=== PATIENT | female | born 1945 | race Caucasian/White ===

== ENCOUNTER 2017-01-23 12:43 | Emergency (ER) | payer MEDICARE, MEDICAID ==
[2017-01-23 13:13] VITALS: RESP 16; O2SAT 100
[2017-01-23 13:57] LABS: RBC URINE 1657 /hpf (0-3); URINE BACTERIA OCC (<OCC); URINE BILIRUBIN NEGATIVE (NEGATIVE); URINE BLOOD 3+ (NEGATIVE); URINE COLOR Yellow (YELLOW); URINE GLUCOSE (UA) NORMAL (Normal); URINE KETONE NEGATIVE (NEGATIVE); URINE LEUKOCYTE ESTERASE 2+ Leu/uL (Negative); URINE PROTEIN 2+ mg/dL (NEGATIVE); URINE UROBILINOGEN NORMAL mg/dL (0.2-1.0); WBC CLUMPS MANY /hpf; WBC URINE 612 /hpf (0-5)
[2017-01-23] MEDS ORDERED: Sodium Chloride 0.9% 1,000 ML IV ONE (14:12)
[2017-01-23] MEDS ORDERED: Sodium Chloride 0.9% 1,000 ML ONE (14:34)
[2017-01-23 14:42] LABS: BASO % 0.4 % (0.0-2.0); EOS # 0.2 K/uL (0.0-0.7); EOS % 2.2 % (0.0-4.0); HEMATOCRIT 28.1 % (34.0-47.0); LYMPH # 1.2 K/uL (1.0-4.3); LYMPH % 11.3 % (20.0-40.0); MEAN CORPUSCULAR HEMOGLOBIN 28.9 pg (27.0-31.0); MEAN CORPUSCULAR HGB CONC 32.8 g/dL (33.0-37.0); MONO # 0.8 K/uL (0.0-0.8); MONO % 7.6 % (0.0-10.0); RED CELL DISTRIBUTION WIDTH 14.2 % (11.5-14.5)
[2017-01-23 14:48] LABS: POTASSIUM 3.8 mmol/L (3.6-5.2)
--- NOTE | 2017-01-23 14:48 | RAD ---
PROCEDURE: Radiographs of the chest and abdomen (obstructive series) HISTORY: abd pain COMPARISON: Chest x-ray performed 01/19/17 FINDINGS: CHEST: Heart size appears within normal limits. Atherosclerotic calcifications of the aortic knob. Chronic appearing fibrotic changes within the right greater than left lung apices. Scattered tiny nodular densities evident. Please note that chest x-ray has limited sensitivity for the detection of pulmonary masses. No significant pleural effusion. No definite pneumothorax. ABDOMEN AND PELVIS: Nonobstructive bowel gas pattern. No definite free air. Moderate constipation. Left ureteral stent. Right stent/nephrostomy catheter. Osseous demineralization. Degenerative changes. IMPRESSION: Chronic appearing fibrotic changes within the right greater than left lung apices. Scattered tiny pulmonary nodular densities evident. Moderate constipation. Left ureteral stent. Right stent/nephrostomy catheter.
[2017-01-23 14:51] LABS: ALB/GLOB RATIO 0.8 (1.0-2.1); BILIRUBIN,TOTAL 0.5 mg/dL (0.2-1.3); CALCIUM 9.8 mg/dl (8.6-10.4); TOTAL PROTEIN 8.3 g/dL (6.3-8.3)
[2017-01-23] MEDS ORDERED: Moxifloxacin IV 400mg/250ml NS 400 MG/250 ML BAG IVPB STA (14:52)
[2017-01-23] MEDS ORDERED: cefTRIAXone IV 1 gm in Dextros 50 ML IV STA (15:17)
--- NOTE | 2017-01-23 15:19 | C.PDOC ---
History Of Present Illness 71 y/o female who presents to the ED complaining of foul smelling urine and cramping abdominal discomfort. 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 Pending exchange of the right jose-ureteral stent for a ureteral stent, and changing of the left stent in [address] Beatrice Mosley. PMD: Tiffanie Barraza Time Seen by Provider: 01/23/17 13:03 Chief Complaint (Nursing): Female Genitourinary History Per: Patient History/Exam Limitations: no limitations Current Symptoms Are (Timing): Still Present Past Medical History Reviewed: Historical Data, Nursing Documentation, Vital Signs Vital Signs: Last Vital Signs Temp 97.4 F L 01/23/17 13:08 Pulse 98 H 01/23/17 13:08 Resp 16 01/23/17 13:08 BP 145/68 01/23/17 13:08 Pulse Ox 100 01/23/17 15:38 - Medical History PMH: Malignancy (gynecological cancer) Surgical History: Endoscopy - [facility] Procedures CYSTOSCOPY NEC (10/04/12) REMOV URETERAL DRAIN (11/07/13) URETERAL CATHETERIZATION (11/07/13) Family History: States: Unknown Family Hx - Social History Hx Tobacco Use: No Hx Alcohol Use: No Hx Substance Use: No - Immunization History Hx Tetanus Toxoid Vaccination: No Hx Influenza Vaccination: Yes Hx Pneumococcal Vaccination: Yes Review Of Systems Except As Marked, All Systems Reviewed And Found Negative. Gastrointestinal: Positive for: Abdominal Pain (cramping) Genitourinary: Positive for: Other (Foul smelling urine) Physical Exam - Physical Exam Appears: No Acute Distress, Other (Thin, elderly) Skin: Normal Color, Warm, Dry Head: Atraumatic, Normacephalic Eye(s): bilateral: Normal Inspection, PERRL, EOMI Oral Mucosa: Moist Neck: Normal Chest: Symmetrical Cardiovascular: Rhythm Regular, No Murmur Respiratory: Normal Breath Sounds, No Accessory Muscle Use Gastrointestinal/Abdominal: Soft, No Tenderness, Other (percutaneous ureteral stents noted) Back: Normal Inspection Extremity: Normal ROM, No Pedal Edema, No Deformity Neurological/Psych: Oriented x3, Normal Speech Gait: Steady ED Course And Treatment - Laboratory Results Result Diagrams: 01/23/17 14:32 01/23/17 14:32 Lab Interpretation: Abnormal (+ mild leukocytosis, baseline anemia, normal renal function, UA 600 WBC's) O2 Sat by Pulse Oximetry: 100 (RA) Pulse Ox Interpretation: Normal - Radiology CXR: Interpreted by Me CXR Interpretation: Yes: No Acute Disease - Other Rad abd x 2 X-Ray: Interpreted by Me (+ R perc renal/ureteral stent in goo place, L ureteral stent good place, +FOS) Progress Note: 14:12. Initial Plan: Ordered blood work, cultures, and X-Ray Abdomen Obstructive Series. Started on fluids, Toradol, and Rocephin. Pending reevaluation and disposition. Reevaluation Time: 15:35 (Patient is medically stable and will be discharged home with Rx for Cephalexin and Colace.) Reassessment Condition: Improved - Physician Consult Information Time Consulting Physician Contacted: 14:50 Physician Contacted: Beatrice Mosley Outcome Of Conversation: Advises starting patient on Avelox IV. Medical Decision Making Medical Decision Making: Time: 14:46 X-Ray Abdomen Obstructive Series: FINDINGS: CHEST: Heart size appears within normal limits. Atherosclerotic calcifications of the aortic knob. Chronic appearing fibrotic changes within the right greater than left lung apices. Scattered tiny nodular densities evident. Please note that chest x-ray has limited sensitivity for the detection of pulmonary masses. No significant pleural effusion. No definite pneumothorax. ABDOMEN AND PELVIS: Nonobstructive bowel gas pattern. No definite free air. Moderate constipation. Left ureteral stent. Right stent/nephrostomy catheter. Osseous demineralization. Degenerative changes. IMPRESSION: Chronic appearing fibrotic changes within the right greater than left lung apices. Scattered tiny pulmonary nodular densities evident. Moderate constipation. Left ureteral stent. Right stent/nephrostomy catheter. --Rocephin in case Avelox not available Disposition Doctor Will See Patient In The: Office Counseled Patient/Family Regarding: Studies Performed, Diagnosis - Disposition Referrals: Beatrice Mosley MD [Staff Provider] - Disposition: HOME/ ROUTINE Disposition Time: 15:36 Condition: GOOD Additional Instructions: UTI: jamel keflex 500 mg (antbiotico) 2 veces al rena por [address] Mosley para hacer los cambios de los tubos utererales. Estrenemiento: jamel un purgante ahora- julia botella de Citrato de Magnesio Sigue Colace 100 mg (esuavesante de los heces) 2 veces al rena para ayudar en prevenir el estrenmeinto Cambios de dieta. Prescriptions: Cephalexin [cephalexin] 500 mg PO BID #12 cap Docusate [Colace] 100 mg PO BID #60 cap Instructions: Constipation (ED), Urinary Tract Infection in Women (ED) Forms: [employer] (Indonesian) Print Language: SINHALA - Clinical Impression Clinical Impression: UTI (urinary tract infection), Constipated - Scribe Statement The provider has reviewed the documentation as recorded by the Scribe Hillary Duenas All medical record entries made by the Scribe were at my direction and personally dictated by me. I have reviewed the chart and agree that the record accurately reflects my personal performance of the history, physical exam, medical decision making, and the department course for this patient. I have also personally directed, reviewed, and agree with the discharge instructions and disposition.
[2017-01-23] MEDS ORDERED: cefTRIAXone IV 1 gm in Dextros 50 ML IVPB ONE (15:52)
[2017-01-23 16:23] VITALS: BP 119/64; PULSE 90; TEMP 98
== END 2017-01-23 16:35 | disposition home or self-care (01) ==
LOC: C.ER 12:43
DX: N39.0 Urinary tract infection, site not specified (principal); K59.00 Constipation, unspecified
CPT/HCPCS: 74022; 80053; 81001; 83690; 85025; 87040; 87086; 96361; 96365; 96375; 99285; J0696; J1885; J7040

== ENCOUNTER 2017-01-27 05:48 | Day surgery (SDC) | payer MEDICARE, MEDICAID ==
[2017-01-27] MEDS ORDERED: Lidocaine 2% Jelly (Uro-Jet) ONE (07:35)
[2017-01-27] MEDS ORDERED: Iohexol 240 (50 ml) ONE (07:35)
[2017-01-27] MEDS ORDERED: cefTRIAXone IV 1 gm in Dextros 50 ML IVPB ONE (07:35)
[2017-01-27] MEDS ORDERED: Lactated Ringer's 1,000 ML IV ONE ×2 (08:05→09:10)
[2017-01-27] MEDS ORDERED: Midazolam 2 MG/2 ML VIAL ONE (08:10)
[2017-01-27] MEDS ORDERED: Gentamicin 80 mg in 0.9% NS 80 MG/100 ML BAG IVPB ONE (08:17)
[2017-01-27] MEDS ORDERED: Propofol 10 mg/ml Inj (20 ML) ONE ×2 (08:19→08:56)
[2017-01-27] MEDS ORDERED: HYDROmorphone 0.5 mg/0.5 ml ISec IVP PRN (08:47)
--- NOTE | 2017-01-27 09:41 | PCM.SURG1 ---
Surgeon's Initial Post Op Note - Surgeon's Notes Surgeon: Justin ESCOBAR Ultrasound Tester: NONE Type of Anesthesia: IV Sedation Pre-Operative Diagnosis: BILAT HYDRONEPHROSIS Operative Findings: SAME, CYSTITIS. PSSIBLE PELVIC INDURATION/MASS Post-Operative Diagnosis: SAME Operation Performed: CYSTO, BILAT RTG PYELOGRAM. BILAT STENT INSERTION. EUA Specimen/Specimens Removed: URINE. BLADDER DEBRIS Estimated Blood Loss: EBL {In ML}: 0 Blood Products Given: N/A Post-Op Condition: Good Date of Surgery/Procedure: 01/27/17 Time of Surgery/Procedure: 09:15
[2017-01-27 11:32] VITALS: BP 124/51; PULSE 86; RESP 18; TEMP 97.9; O2SAT 99
--- NOTE | 2017-01-27 13:32 | RAD ---
HISTORY: BILAT HYDRONEPHROSIS COMPARISON: 10/04/2012 FINDINGS: There is a stable 4 mm calcification in the right kidney. There is a right nephrostomy with external draining catheter. There is also right-sided ureteral catheter. There is a stable left-sided double-J ureteral catheter. BOWEL: Normal. No obstruction. No free air. BONES: Within normal limits for the patient's age. OTHER FINDINGS: There are multiple scar surgical clips in the abdomen and pelvis. IMPRESSION: 1. 4 mm right renal stone. 2. Right nephrostomy and ureteral stents remain in place. 3. Stable position of left ureteral stent.
--- NOTE | 2017-01-28 09:26 | RAD ---
INTRAOPERATIVE FLUOROSCOPY: Intraoperative fluoroscopy was provided to the referring physician to assist in bilateral double-J ureteral stent placement for bilateral hydronephrosis apparently. Spot fluoroscopic images demonstrate cystogram follow-up by bilateral ureteronephrograms with stepwise placement of bilateral double-J ureteral stents identified. 92.9 seconds of fluoroscopy was utilized cumulative radiation dose is 0.426 mGy. IMPRESSION: PLEASE SEE OPERATIVE REPORT FOR FURTHER DETAIL.
--- NOTE | 2017-01-31 09:14 | OP ---
PROCEDURE DATE: 01/27/2017 PREOPERATIVE DIAGNOSIS: Bilateral hydronephrosis. POSTOPERATIVE DIAGNOSES: Bilateral hydronephrosis, cystitis, and pelvic mass. PROCEDURE: Cystoscopy, bilateral retrograde pyelogram, bilateral ureteral stent insertion. Exam under anesthesia. Cystogram. OPERATING SURGEON: Dr. Beatrice Mosley. PROCEDURE FOLLOWS: The patient was placed in lithotomy position. Procedure was performed under fluoroscopic control as well as video-endoscopic control. Anesthesia was provided by the anesthesiologist. Perioperative antibiotics were administered. A 22-Malagasy cystoscope sheath was introduced with obturator. There was residual urine within the bladder was approximately 30 mL. Urine was noted to be cloudy and pink. Urine was sent for bacteriologic and cytologic examination. The urethra and bladder were inspected. There was noted to be no bladder stone. Visibility within the bladder was decreased due to the inflammation of the bladder and due to the turbid urine. Stent attached to the guidewire adjacent to the right nephroureteral stent was performed. However, the guidewire could not be advanced into the ureteral orifice. The right ureteral stent was grasped with grasping forceps and delivered distally through the urethral meatus. A 0.035-inch guidewire was inserted into the right nephroureteral stent and passed approximately upto the level of the kidney. The nephroureteral stent was then removed via the flank. The guidewire was coiled within the hydronephrotic kidney. An open-ended catheter was inserted over the guidewire. Iodinated contrast material was instilled. Left retrograde pyelogram was performed and demonstrated marked hydronephrosis. The guidewire was re-inserted. A 6-Malagasy multi-length stent was inserted over the guidewire. Proper stent position was confirmed within the bladder as well as within the kidney by endoscopy and fluoroscopy. Attention was then turned towards the left side. The left stent was noted to be encrusted. The left stent was able to be removed. However, the access into the ureteral orifice was not able to be preserved by insertion of a guidewire. Therefore, the probing of the left trigone was performed. The left ureteral orifice could not be found on the left trigone. Instead, the left ureteral orifice was noted to be in a more cephalad position on the posterior wall of the bladder. The guidewire was inserted with manipulation of an open-ended catheter as well as the sensor wire. The guidewire was passed upto the left of the kidney. An open-ended catheter was inserted over the guidewire. There was a hydronephrotic drip. Urine was sent for bacteriologic examination from each kidney. Iodinated contrast material was instilled. There was noted to be severe left hydronephrosis. The guidewire was re-inserted. A 6-Malagasy multi-length stent was inserted into the left kidney over the guidewire. Proper stent position was confirmed with fluoroscopy and endoscopy. The bladder was re-inspected. There was some debris within the bladder, which was irrigated-free. This debris was sent for pathologic examination. The bladder was then drained, cystoscope sheath was removed. Lidocaine jelly was instilled for postoperative analgesia. Exam under anesthesia was performed. The vagina was noted to be markedly shortened. There was a pelvic mass appreciated on both vaginal exam as well as on rectal examination. The mass was mobile, was approximately 4 cm in size and was firm without fixation but with induration. Additionally, a cystogram was performed. Iodinated contrast was instilled via the cystoscope. Fluoroscopic views of the bladder were obtained. The bladder was noted to be smooth walled and distended well. There was no vesicoureteral reflux noted. The cystogram had been performed prior to identification of the left ureteral orifice. The patient was returned to supine position. The patient tolerated the procedure without complications. Beatrice Mosley MD [facility]
== END 2017-01-27 12:00 | disposition home or self-care (01) ==
LOC: C.SDS 05:48
PROVIDERS: ATTEND Urology
DX: N13.30 Unspecified hydronephrosis (principal); N30.90 Cystitis, unspecified without hematuria; Z87.891 Personal history of nicotine dependence; I10 Essential (primary) hypertension; N19 Unspecified kidney failure; D64.9 Anemia, unspecified; H40.9 Unspecified glaucoma; Z85.44 Personal history of malignant neoplasm of other female genital organs
CPT/HCPCS: 52332; 74000; 76000; 87086; 87181; 88305; J0696; J1580; J7120; Q9966